=== PATIENT | male | born 2000 | race Two or more races ===

== ENCOUNTER 2023-03-25 19:06 | Emergency (ER) | payer MEDICAID, OTHER ==
[~2023-03-25] VITALS: Ht 165.1 cm; Wt 97.0 kg
[2023-03-25 19:29] VITALS: BP 137/74; PULSE 93; RESP 15; O2SAT 96
[2023-03-25] MEDS ORDERED: IOHEXOL 350 MG/ML 100ML IJ ONE (21:34)
[2023-03-25] MEDS ORDERED: CYCL-837 PO (22:53)
[2023-03-25] MEDS ORDERED: IBUP-1455 PO (22:53)
== END 2023-03-25 22:54 ==
LOC: ER 19:06
DX: S20.219A Contusion of unspecified front wall of thorax, initial encounter (principal); V49.88XA Car occupant (driver) (passenger) injured in other specified transport accidents, initial encounter; Y93.89 Activity, other specified; Y92.89 Other specified places as the place of occurrence of the external cause; Y99.8 Other external cause status
CPT/HCPCS: 70450; 71260; 72125; 74177; 99285; Q9967

== ENCOUNTER 2023-05-21 22:13 | Emergency (ER) | payer MEDICAID ==
[~2023-05-21] VITALS: Ht 165.1 cm; Wt 98.6 kg
[~2023-05-21 22:13] MED LIST: CYCL-837 PO; IBUP-1455 PO
[2023-05-22 00:56] LABS: COVID19 ANTIGEN SOFIA FIA NEGATIVE (NEGATIVE); Rapid Influenza A Negative (Negative); Rapid Influenza B Negative (Negative)
[2023-05-22] MEDS ORDERED: AMOX875T4 PO (02:28)
[2023-05-22] MEDS ORDERED: KETOROLAC TROMETH 60MG/2ML VIAL IM ONE (02:30)
[2023-05-22 02:40] VITALS: BP 142/81; PULSE 120; RESP 18; TEMP 99.4; O2SAT 97
== END 2023-05-22 03:24 | disposition home or self-care (01) ==
LOC: ER 22:13
DX: J01.90 Acute sinusitis, unspecified (principal); Z20.822 Contact with and (suspected) exposure to COVID-19
CPT/HCPCS: 36415; 70450; 87426; 87804; 96372; 99285; J1885

== ENCOUNTER 2023-07-04 20:15 | Emergency (ER) | payer MEDICAID ==
[~2023-07-04] VITALS: Ht 167.6 cm; Wt 98.5 kg
[~2023-07-04 20:15] MED LIST changes: +AMOX875T4 PO
[2023-07-04 20:36] VITALS: BP 119/76; PULSE 77; RESP 16; TEMP 97.6; O2SAT 96
[2023-07-04] MEDS ORDERED: KETOROLAC TROMETH 60MG/2ML VIAL IM ONE (23:15)
[2023-07-04] MEDS ORDERED: HYDROcodone-ACET 5/325MG TAB PO ONE (23:15)
[2023-07-04] MEDS ORDERED: ONDANSETRON ODT 4 MG TAB PO ONE (23:15)
[2023-07-04] MEDS ORDERED: PRED20TA2 PO (23:22)
[2023-07-04] MEDS ORDERED: FLUT1SPR5 (23:22)
[2023-07-04] MEDS ORDERED: AUG875T PO (23:22)
[2023-07-04] MEDS ORDERED: ZOFR4T PO (23:22)
[2023-07-04] MEDS ORDERED: HYDR-4902 PO (23:22)
[2023-07-04] MEDS ORDERED: OFL50TS OT (23:22)
== END 2023-07-05 00:16 | disposition home or self-care (01) ==
LOC: ER 20:15
DX: J32.0 Chronic maxillary sinusitis (principal); H66.92 Otitis media, unspecified, left ear
CPT/HCPCS: 70450; 96372; 99285; J1885; Q0162

== ENCOUNTER 2023-08-10 15:37 | Emergency (ER) | payer MEDICAID ==
[~2023-08-10] VITALS: Ht 167.6 cm; Wt 94.1 kg
[~2023-08-10 15:37] MED LIST changes: +AUG875T PO; +FLUT1SPR5; +HYDR-4902 PO; +OFL50TS OT; +PRED20TA2 PO; +ZOFR4T PO
[2023-08-10 16:01] VITALS: BP 120/72; TEMP 97
[2023-08-10 16:42] VITALS: PULSE 74; RESP 17; O2SAT 99
[2023-08-10] MEDS ORDERED: MELO-335 PO (16:49)
== END 2023-08-10 17:01 | disposition home or self-care (01) ==
LOC: ER 15:37
DX: M54.12 Radiculopathy, cervical region (principal); M25.512 Pain in left shoulder

== ENCOUNTER 2023-12-27 00:11 | Emergency (ER) | payer MEDICAID ==
[~2023-12-27] VITALS: Ht 167.6 cm; Wt 96.5 kg
[~2023-12-27 00:11] MED LIST changes: +MELO15TA29 PO
[2023-12-27 00:27] LABS: Eosinophils # (auto) 0.1 10 ^3/uL (0-0.8); Eosinophils % (auto) 1.1 % (0.0-7.0); Hemoglobin 18.5 g/dL (13.5-17.5); Mean Corpuscular Volume 88.6 fL (80.0-100.0); Monocytes # (auto) 0.3 10 ^3/uL (0-1.3); Neutrophils # (auto) 3.9 10 ^3/uL (1.6-8.6)
[2023-12-27 00:29] LABS: Basophils # (auto) 0.1 10 ^3/uL (0-0.2); Basophils % (auto) 0.7 % (0.0-2.0); Hematocrit 51.3 % (41.0-53.0); Lymphocytes # (auto) 2.7 10 ^3/uL (0.4-5.4); Lymphocytes % (auto) 38.7 % (10.0-50.0); Mean Corpuscular Hemoglobin 31.9 pg (28.0-32.0); Monocytes % (auto) 4.6 % (0.0-12.0); Neutrophils % (auto) 54.9 % (37.0-80.0); Red Blood Cells 5.79 10^6/uL (4.5-5.90); Red Cell Distribution Width 12.8 % (11.8-14.3)
[2023-12-27 00:41] LABS: Alanine Aminotransferase 50 U/L (7-40); Albumin 4.5 g/dL (3.2-4.8); Alkaline Phosphatase 101 U/L (46-116); Anion Gap 8 (5-15); Aspartate Aminotransferase 25 U/L (13-40); BUN/Creatinine Ratio 7.7 (10.0-20.0); Blood Urea Nitrogen 7 mg/dL (9-23); Calcium 10.8 mg/dL (8.7-10.4); Carbon Dioxide 28 mmol/L (20-30); Chloride 104 mmol/L (98-107); Glucose 96 mg/dL (74-106); Potassium 4.1 mmol/L (3.5-5.1); Sodium 140 mmol/L (136-145)
[2023-12-27 00:42] LABS: Bilirubin, Total 1.3 mg/dL (0.2-1.0); Total Protein 7.7 g/dL (5.7-8.2)
[2023-12-27 01:26] LABS: Urine Bacteria None Seen /hpf (None Seen)
[2023-12-27 01:52] LABS: Urine Blood Negative /uL (Negative); Urine Clarity Clear (Clear); Urine Color Yellow (Yellow); Urine Mucus FEW (None Seen); Urine Protein, UAD 1+ (Negative); Urine Specific Gravity 1.033 (1.001-1.035); Urine Urobilinogen 3 mg/dL (Negative); Urine WBC 2 /hpf (0 - 3); Urine pH 5.5 (5.0-9.0)
[2023-12-27 04:35] VITALS: BP 116/73; PULSE 73; RESP 14; TEMP 98.3; O2SAT 96
== END 2023-12-27 00:45 | disposition home or self-care (01) ==
LOC: ER 00:11
DX: R07.9 Chest pain, unspecified (principal); R00.2 Palpitations
CPT/HCPCS: 36415; 71045; 80053; 81001; 84484; 85025; 93005

== ENCOUNTER 2024-05-30 21:11 | Emergency (ER) | payer MEDICAID ==
[~2024-05-30] VITALS: Ht 167.6 cm; Wt 97.7 kg
--- NOTE | 2024-05-30 21:18 | ECG ---
[facility] Test Date: 2024-05-30 Test Time: 21:17:18 Pat Name: UMBERTO CARL Department: ER Room: Gender: M Manager Unix: EDUARDA : 2000 Requested By: MURALI SINGLETON Order Number: [id number] Reading MD: Tom Jackson Measurements Intervals [place] Rate: 121 P: 47 MT: 160 QRS: 69 QRSD: 86 T: 12 QT: 288 QTc: 409 Interpretive Statements Sinus tachycardia Electronically Signed On 05-31-2024 8:57:25 PST by Tom Jackson Please click the below link to view image of tracing.
[2024-05-30] MEDS: ACETAMINOPHEN 325 MG TAB PO ONE (21:27)
--- NOTE | 2024-05-30 21:45 | DVH ---
CHEST RADIOGRAPH Indication: COUGH Technique: Single frontal view of the chest was obtained Comparison: XY CHEST PORTABLE on DOS: 12/27/23 FINDINGS: Lines and Tubes: None Lungs: No focal consolidation. Pleura: No effusion. No pneumothorax. Cardiomediastinal contours: Unremarkable Bones: No acute osseous abnormality. IMPRESSION: No acute cardiopulmonary disease.
[2024-05-30] MEDS ORDERED: PROM1SOL4 PO (21:55)
--- NOTE | 2024-05-30 21:57 | ED.PDOC ---
History of Present Illness Chief Complaint: Flu like Time Seen by MD: 21:27 Primary Care Provider: RYAN Allergies: Coded Allergies: NO KNOWN ALLERGIES (Unverified , 03/25/23) Home Meds Active Scripts Meloxicam (Meloxicam) 15 Mg Tab, 1 TAB PO DAILY for 30 Days, #30 TAB 0 Refills Prov:FLORENCIA BREWSTER [employer] DES[employer] 08/10/23 Ondansetron Odt 4MG Tab (ZOFRAN PO) 4 Mg Tb, 1 TAB PO Q8HPRN PRN, #10 TAB as needed for nausea vomitingODT TAB-DISSOLVE IN MOUTH, THEN SWALLOW Prov:LINDA VILLATORO Q [employer] DES[employer] 07/04/23 Hydrocodone-Acetaminophen (Hydrocodone Bitartrate/AC 5-325 mg) 1 Tab Tab, 1 TAB PO Q6HPRN PRN, #8 TAB as needd for pain Prov:LINDA VILLATORO Q [employer] DESIGNER 07/04/23 Ofloxacin (Otic) (FLOXIN OTIC) [address], 5 ML OT BID for 10 Days, #10 ML Prov:LINDA VILLATORO Q [employer] DES[employer] 07/04/23 Prednisone (Prednisone) 20 Mg Tab, 1 TAB PO BID for 5 Days, #10 TAB with food Prov:LINDA VILLATORO Q [employer] DES[employer]ER 07/04/23 Fluticasone Propionate (Nasal) (Flonase Allergy Relief) 50 Mcg/Act Spr, 1 TAB NA BID, #1 SPRAY Prov:IRVINGROBERTLILY Q [employer] DESIGNER 07/04/23 Amoxicillin & Pot Clavulanate (AUGMENTIN TABLET) 875 Mg Tb, 1 TAB PO BID for 10 Days, #20 TAB Prov:IRVINGROBERTLILY Q [employer] DESIGNER 07/04/23 Amoxicillin & Pot Clavulanate (Amoxicillin/Potassium Cla) 875 Mg Tab, 1 TAB PO BID for 7 Days, #14 TAB 0 Refills Prov:THI LOUIS 05/22/23 Cyclobenzaprine Hcl (Cyclobenzaprine Hcl) 5 Mg Tab, 1 TAB PO TID, #30 TAB Prov:YUDY GARCIA 03/25/23 Ibuprofen Micronized (Ibuprofen) 800 Mg Tab, 800 MG PO TID PRN, #40 TAB Prov:YUDY GARCIA 03/25/23 Mode of Arrival: Ambulatory Past Medical History PAST MEDICAL HISTORY: Denies Surgical History: Denies all surgeries Family History Family History: Reviewed,noncontributory to illness, Unknown Social History Smoker: Non-Smoker Alcohol: Denies ETOH Use Drugs: Denies Drug Use Lives In: Home Constitutional: reports: chills, fever; denies: diaphoresis, fatigue, malaise, sweats, weakness, others EENTM: denies: blurred vision, double vision, ear bleeding, ear discharge, ear drainage, ear pain, ear ringing, eye pain, eye redness, hearing loss, mouth pain, mouth swelling, nasal discharge, nose bleeding, nose congestion, nose pain, photophobia, tearing, throat pain, throat swelling, voice changes, others Respiratory: reports: cough, SOB at rest; denies: hemoptysis, orthopnea, s hortness of breath, SOB with excertion, stridor, wheezing, others Cardiovascular: reports: chest pain; denies: dizzy spells, diaphoresis, Dyspnea on exertion, edema, irregular heart beat, left arm pain, lightheadedness, palpitations, PND, syncope, others Gastrointestinal: denies: abdomen distended, abdominal pain, blood streaked bowels, constipated, diarrhea, dysphagia, difficulty swallowing, hematemesis, melena, nausea, poor appetite, poor fluid intake, rectal bleeding, rectal pain, vomiting, others Neurological: denies: dizziness, fainting, headache, left sided numbness, left sided weakness, numbness, paresthesia, pre-existing deficit, right sided numbness, right sided weakness, seizure, speech problems, tingling, tremors, weakness, others Musculoskeletal: denies: back pain, gout, joint pain, joint swelling, muscle pain, muscle stiffness, neck pain, others Integumetry: denies: bruises, change in color, change in hair/nails, dryness, laceration, lesions, lumps, rash, wounds, others Allergic/Immunocompromised: denies: Difficulty Healing, Frequent Infections, Hives, Itching, others Physical Exam General Appearance: No Apparent Distress, Normal HEENT: Normal ENT Inspection, Pharynx Normal, TMs Normal Neck: Full Range of Motion, Non-Tender, Normal, Normal Inspection Respiratory: Chest Non-Tender, Lungs Clear, No Accessory Muscle Use, No Respiratory Distress, Normal Breath Sounds Cardiovascular: No Edema, No JVD, No Murmur, No Gallop, Normal Peripheral Pulses, Regular Rate/Rhythm Breast Exam: Deferred Gastrointestinal: No Organomegaly, Non Tender, No Pulsatile Mass, Normal Bowel Sounds, Soft Genitalia: Deferred Pelvic: Deferred Rectal: Deferred Extremities: No calf tenderness, Normal capillary refill, Normal inspection, Normal range of motion, Non-tender, No pedal edema Musculoskeletal : Apperance: Normal Neurologic: Alert, escrow officer II-XII nml as Tested, No Motor Deficits, Normal Affect, Normal Mood, No Sensory Deficits Cerebellar Function: Normal Reflexes: Normal Skin: Dry, Normal Color, Warm Lymphatic: No Adenopathy Was a procedure done? Was a procedure done?: No Differential Dx Considerations may include: URI, influenza, COVID, strep throat, pharyngitis, pneumonia X-Ray, Labs, Meds, VS Vital Signs Date Time Temp Pulse Resp B/P (MAP) Pulse Ox O2 Delivery O2 Flow Rate FiO2 05/30/24 21:27 100.4 05/30/24 21:17 121 05/30/24 21:15 100.4 121 20 134/83 (100) 96 05/30/24 21:15 20 96 Room Air* 0 21 Lab Test 05/30/24 21:20 Range/Units Troponin I High Sensitivity < 3 L </=54 ng/L Current Medications Medications (Trade) Dose Ordered Sig/Kori Route Start Time Stop Time Status Last Admin Acetaminophen (Tylenol Tablet) 650 mg ONCE ONCE PO 05/30/24 21:30 05/30/24 21:31 DC 05/30/24 21:27 X-Ray, Labs, Meds, VS Comment Imaging: X-rays and CT scans were reviewed and interpreted by this provider, imaging shows no fractures and no pathological disease. Pending radiology review. Laboratory: Labs reviewed and interpreted by this provider. No significant abnormalities noted. Patient has prior medical visits reviewed. Med reconciliation performed Vital signs reviewed Time of 1ST Reevaluation: 21:56 Reevaluation 1ST: Improved Patient Education/Counseling: Diagnosis, Treatment, Need For Follow Up (Patient advised to follow-up in the emergency room in the next 24 to 48 hours if symptoms do not improve. Advised follow-up with PCP in the next 3 to 5 days. Patient verbalized understanding. ) Family Education/Counseling: No Family Present Departure 1 Departure Time of Disposition: 21:57 Impression: Primary Impression: Chest pain Qualified Codes: R07.1 - Chest pain on breathing Additional Impression: URI (upper respiratory infection) Qualified Codes: J06.9 - Acute upper respiratory infection, unspecified Disposition: HOME / SELF CARE / HOMELESS Condition: Fair Additional Instructions: He has been diagnosed with a viral infection. Follow up with primary care doctor in the next 2-4 days. Increase fluid intake. Take medications as prescribed. Return to the emergency department in the next 4-7 days if symptoms have not improved. If symptoms worsen at any point please return to the emergency department. The chest pain he was presumed musculoskeletal possibly due to the coughing and congestion. e-Prescriptions Ibuprofen Micronized (Ibuprofen) 800 Mg Tab 800 MG PO TID, #30 TAB Prov: YUDY GARCIA 05/30/24 Promethazine-Dm (Promethazine Dm 6.25-15 mg/5Ml) 1 Gabriella Gabriella 5 ML PO TID PRN, #240 ML Prov: YUDY GARCIA 05/30/24 Discharged With: Self Critical Care Note Critical Care Time?: No Stability Stability form required: No Heart Score Heart Score: Heart Score Response (Comments) Value History Slightly Suspicious 0 EKG Normal 0 Age <45 0 Risk Factors No known risk factors 0 Troponin Normal limit 0 Total 0 YUDY GARCIA May 30, 2024 21:57
[2024-05-31 01:23] VITALS: BP 112/74; PULSE 88; RESP 16; TEMP 99.1; O2SAT 96
== END 2024-05-31 01:28 | disposition home or self-care (01) ==
LOC: ER 21:11
DX: R07.9 Chest pain, unspecified (principal); J06.9 Acute upper respiratory infection, unspecified; Z79.1 Long term (current) use of non-steroidal anti-inflammatories (NSAID); Z79.52 Long term (current) use of systemic steroids
CPT/HCPCS: 36415; 71045; 84484; 93005